=== PATIENT | female | born 1995 | race Two or more races ===

== ENCOUNTER 2022-03-07 05:11 | Inpatient (IN) ==
[2022-03-07] MEDS ORDERED: LIDOCAINE 1% LOCAL 20 ML VIAL INFIL PRN (08:11)
[2022-03-07] MEDS ORDERED: OXYTOCIN 30 UNITS/500 ML BAG IV PRN ×3 (08:11→15:33)
--- NOTE | 2022-03-07 08:22 | History & Physical Report ---
Date of Service March 07, 2022 Assessment & Plan (1) Active labor at term: Plan: 26 yo at 40.3 wks presenting in active labor with cervical change, VSS Afebrile GBS neg No medical problems FHR categ I Plan to admit, monitor, labs, AROM and augment with Oxytocin if needed All questions were answered. (2) Normal in multigravida in third trimester: History of Present Illness Primary Care Provider: NO PCP Patient is a 26 yo at 40.3 wks who has been feeling ctxs since yesterday morning, got closer and more painful since 05:30 am No LOF/VB +FM's Her was uncomplicated, she has been seeing Dr Weldon who is on vacation. GBS neg Allergies Allergy/AdvReac Type Severity Reaction Status Date / Time Penicillins Allergy Difficulty Verified 03/05/22 20:42 Breathing Home Medications Medication Instructions Recorded Confirmed Type ibuprofen 800 mg tablet 800 mg PO Q8H PRN pain #30 tabs 06/11/18 Rx acetaminophen 325 mg tablet 650 mg PO QID PRN Pain 03/22/21 03/22/21 History (Tylenol) [id number] 1 mg tab PO 03/05/22 History tablet Patient History Medical History (Updated 03/07/22 @ 08:20 by Jacqueline Martines MD) Dysfunctional uterine bleeding No significant past medical history Social History Smoking Status: Never smoker Second Hand Exposure: No; Hx Alcohol Use: No Hx Substance Use: No Preferred Language: Macedonian Communication Tools: IPad Data Modeling Specialist Required: Yes Beliefs That Will Affect Care: None marital status: Current Living Situation: Spouse and Family Current Living Situation Comment: and son 9 YO Feels Safe at Home: Yes Assistive Devices: None OB History FT , 9 year ago in [facility] Physical Exam Constitutional: WD/WN, vitals as above Gastrointestinal (Abdomen): normal bowel sounds, soft, nontender, no hepatosplenomegaly (gravid) Genitourinary: normal external appearance OB Exam Abdomen: + vertex Manual OB Exam: + cervical dilation 4 cm, + cervical effacement 80% and + station -1 (large, tight bulging bag) OB Exam Monitor Tracing: + external uterine monitor used and + category I Results & Data ([facility]) Vital Signs (Past 12 Hours) Vital Signs Temp Pulse Resp BP 03/07/22 05:31 20 03/07/22 07:03 36.7 C 85 20 137/80 03/07/22 06:00 20 03/07/22 06:00 36.8 C 20 03/07/22 05:37 92 H 129/85
[2022-03-07] MEDS ORDERED: Flu Vaccine (Fluarix) 0.5mL SYR (Standard Dose) IM ONE (08:30)
[2022-03-07] MEDS: LACTATED RINGER'S 1,000 ML IV PRN ×2 (08:30→12:18)
[2022-03-07 08:52] LABS: Hematocrit (blood only) 36.5 % (34.1-44.9); Hemoglobin 12.8 g/dl (12.0-16.0); Mean Corpuscular Hemoglobin 33.3 pg (25.0-34.0); Mean Corpuscular Hgb Conc 35.1 g/dL (32.0-36.0); Mean Corpuscular Volume 95.1 fL (80.0-100.0); Mean Platelet Volume 10.9 fL (9.4-12.3); Platelet Count 132 K/uL (130-400); Platelet Estimate Decreased (Normal); RDW Coefficient of Variation 13.5 % (11.5-14.5); RDW Standard Deviation 46.6 fL (36.4-46.3); Red Blood Count 3.84 M/uL (3.93-5.22); White Blood Count 7.36 K/ul (4.8-10.8)
[2022-03-07 08:57] LABS: Albumin Globulin Ratio 1.2 (0.9-2); Albumin Level 3.6 gm/dl (3.4-5.0); Bilirubin,Total 0.4 mg/dl (0.2-1.0); Calcium 8.9 mg/dl (8.5-10.1); Creatinine Clr Calc Pharmacy 135.3 ml/min; Est GFR (African American) 147.2 ml/min; Potassium 3.5 mmol/L (3.5-5.1); Total Protein 6.6 gm/dl (6.0-8.3)
[2022-03-07] MEDS ORDERED: BUPIVACAINE 0.25% 30 ML VIAL ONE (09:07)
[2022-03-07] MEDS ORDERED: LIDOCAINE 2%/EPINEPHRINE 1:200,000 20 ML SDV ONE (09:07)
[2022-03-07] MEDS ORDERED: ePHEDrine sulfate 50 MG/ML AMP ONE (09:07)
[2022-03-07] MEDS ORDERED: SODIUM CHLORIDE 0.9% INJ 10 ML VIAL ONE (09:07)
[2022-03-07] MEDS ORDERED: fentaNYL citrate 100 MCG/2 ML VIAL ONE (09:07)
[2022-03-07] MEDS ORDERED: fentaNYL 2MCG/ML ROPIVACAINE 1.25MG/ML 100 ML BAG EPI ONE (09:08)
--- NOTE | 2022-03-07 09:20 | Anesthesiology Consultation ---
Date of Service March 07, 2022 Assessment & Plan Chart Review Chart Review: Acceptable Risk for Labor Epidural Consults Requested none ASA ASA2 Proposed Anesthesia Anesthesia Type: Labor Epidural Risk / Benefits Reviewed With: PT / POA / Parent / Guardian, Accepts Plan and Informed Consent Obtained History Height/Weight Height: 5 ft 2 in Weight: 69.4 kg Allergies Allergy/AdvReac Type Severity Reaction Status Date / Time Penicillins Allergy Difficulty Verified 03/05/22 20:42 Breathing Medications Home Medications Medication Instructions Recorded Confirmed Last Taken prenat.vits,keith,srx-jbhj-chjos 1 tab PO DAILY 03/07/22 03/07/22 Unknown Active Medications Generic Name Dose Route Start Last Admin Trade Name Freq PRN Reason Stop Dose Admin Lactated Ringer's 1,000 mls @ 150 mls/hr 03/07/22 08:11 03/07/22 09:16 Lr IV 03/09/22 08:10 999 mls/hr .[id number] PRN Infusion L&D Protocol Protocol NPO Date Last Intake of Fluids: 03/07/22 Time Last Intake of Fluids: 00:00 Date Last Intake of Solids: 03/07/22 Time Last Intake of Solids: 00:00 Past Medical History Medical History Dysfunctional uterine bleeding No significant past medical history Exercise / Class Metabolic Activity II 4-5 Yardwork/Stairs/Walk up hill Past Anesthesia History No Hx of Anesthesia Complications and No Family Hx of Anesthesia Complications History of PONV No Hx of PONV and No Hx of Motion Sickness Social History Smoking Status: Never smoker Hx Alcohol Use: No Hx Substance Use: No Physical Exam Vital Signs Last Vital Signs Temp 36.7 C 03/07/22 07:03 Pulse 85 03/07/22 07:03 Resp 20 03/07/22 07:03 BP 137/80 03/07/22 07:03 ENMT Mouth: no TMJ abnormality Thyromental Distance: > or= 3.5 Finger Breadths Mallampati Class: II Neck normal visual inspection and trachea midline; neck extension not limited Respiratory normal respiratory effort Auscultation: lungs clear to auscultation bilaterally Cardiovascular Rate/Rhythm: regular rate and regular rhythm Heart Sounds: no murmur Musculoskeletal Spine: normal cervical ROM Extremities: full ROM of extremities Neurologic moves all extremities Psychiatric Orientation: alert and oriented x 3 Testing Laboratory Results 03/07/22 08:17 03/07/22 08:17
[2022-03-07] MEDS ORDERED: NALOXONE HCL 0.4 MG/1 ML VIAL/CARP IV PRN (09:39)
[2022-03-07] MEDS ORDERED: ONDANSETRON INJ 2 MG/ML 2 ML VIAL IV PRN (09:39)
[2022-03-07] MEDS ORDERED: PROMETHAZINE HCL 25 MG in SODIUM CHLORIDE 0.9% 50 ML IV PRN (09:39)
[2022-03-07] MEDS ORDERED: NALOXONE HCL 1 MG in SODIUM CHLORIDE 0.9% 1000ML 1,000 ML IV PRN (09:39)
[2022-03-07] MEDS ORDERED: NALBUPHINE HCL INJ 10 MG/ML AMP IV PRN (09:39)
[2022-03-07] MEDS ORDERED: ePHEDrine sulfate 50 MG/ML AMP IV PRN (09:39)
[2022-03-07] MEDS ORDERED: fentaNYL 2MCG/ML ROPIVACAINE 1.25MG/ML 100 ML BAG EPI PRN (09:39)
[2022-03-07] MEDS ORDERED: diphenhydrAMINE 50 MG/ML VIAL IV PRN (09:39)
[2022-03-07 09:45] LABS: Rubella IgG Ab Immune (Immune)
--- NOTE | 2022-03-07 11:53 | Obstetrical Progress Note ---
Date of Service March 07, 2022 Assessment & Plan Admission and Anticipated Discharge Date Admission Date: March 07, 2022 Subjective Patient is comfortable now VSS Afebrile FHR categ I VE; 5/ 80%/ -1, Large bg, AROM'ed light meconium Ctxs q2-4 min Continue to monitor Augment with Pitocin as needed Results & Data ([facility]) Vital Signs (Past 12 Hours) Vital Signs Temp Pulse Resp BP Pulse Ox 03/07/22 05:31 20 03/07/22 11:48 72 99 03/07/22 11:43 69 97 03/07/22 11:39 66 120/68 03/07/22 11:38 65 97 03/07/22 11:33 71 97 03/07/22 11:28 89 97 03/07/22 11:23 73 96 03/07/22 11:22 69 119/62 03/07/22 11:18 76 95 03/07/22 11:13 75 97 03/07/22 11:08 96 03/07/22 11:08 79 03/07/22 11:08 79 119/70 03/07/22 11:03 78 97 03/07/22 10:58 73 96 03/07/22 10:53 69 95 03/07/22 10:54 68 18 119/67 94 03/07/22 10:48 80 96 03/07/22 10:43 82 96 03/07/22 10:39 71 119/69 03/07/22 10:38 80 95 03/07/22 10:33 83 96 03/07/22 10:28 75 96 03/07/22 10:23 74 95 03/07/22 10:21 73 123/68 03/07/22 10:18 73 96 03/07/22 10:15 63 122/67 03/07/22 10:13 77 95 03/07/22 10:10 70 122/62 03/07/22 10:08 74 97 03/07/22 10:05 75 118/69 03/07/22 10:03 72 97 03/07/22 10:02 66 120/74 03/07/22 09:58 73 97 03/07/22 09:57 75 18 114/69 03/07/22 09:53 80 98 03/07/22 09:50 69 118/67 03/07/22 09:48 74 97 03/07/22 09:45 76 129/67 03/07/22 09:43 78 98 03/07/22 09:40 76 118/63 03/07/22 09:38 98 03/07/22 09:38 80 03/07/22 09:38 85 116/63 03/07/22 09:36 83 118/63 03/07/22 09:33 82 99 03/07/22 09:34 80 125/70 03/07/22 07:03 36.7 C 85 20 137/80 03/07/22 06:00 20 03/07/22 06:00 36.8 C 20 03/07/22 05:37 92 H 129/85
[2022-03-07] MEDS ORDERED: BENZOCAINE 20% AER SPR 82.5 GM CAN EXT PRN (15:33)
[2022-03-07] MEDS ORDERED: bisacodyL 10 MG SUPP PR PRN (15:33)
[2022-03-07] MEDS ORDERED: DIPHTHERIA/TETANUS/PERTUSSIS 0.5 ML SYR/VIAL IM ONE (15:33)
[2022-03-07] MEDS ORDERED: HYDROCORTISONE ACETATE 25 MG SUPP PR PRN (15:33)
[2022-03-07] MEDS ORDERED: ACETAMINOPHEN 325 MG TAB PO PRN (15:33)
[2022-03-07] MEDS ORDERED: IBUPROFEN 600 MG TAB PO PRN (15:33)
[2022-03-07] MEDS ORDERED: METHYLERGONOVINE MALEATE 0.2 MG/ML AMP IM ONE (15:33)
[2022-03-07] MEDS ORDERED: MEASLES, MUMPS & RUBELLA VIRUS VIAL SQ ONE (15:33)
--- NOTE | 2022-03-07 15:39 | Delivery Summary ---
Vaginal Delivery Summary Date of Service March 07, 2022 Vaginal Delivery Summary Patient was found to be fluid dilated and desire to push. She pushed through 2 contractions and delivered the head without difficulty. There was a nuchal cord around the neck x1 which was reduced. The shoulders were delivered with minimal traction and the baby was handed to the mother by mouth and nose were suctioned, the cord was clamped times and cut at 1 minute delay. The baby was moving and crying at that point. The vagina and perineum were checked for lacerations. There was a small first- degree laceration at the right labia minora and on the hymenal ring at 4 o'clock position. Those were repaired with 3-0 Vicryl on SH needle. Excellent hemostasis achieved. The rest of the vagina and perineum were intact. Then the placenta was found to be in the vagina, delivered spontaneously as in tact and complete. Uterus was explored and found to be empty, the lower segment was cleared of all clots and debris's, fundus was firm and EBL was 300 mL. Mom and baby tolerated procedure well, there was a viable female , Apgars were 8/9 and weight is pending. No complications happened and I was present during whole procedure. At the end of the procedure the sponge needle instrument count was correct x2.
--- NOTE | 2022-03-07 16:03 | Anesthesia Procedure Note ---
Date of Service March 07, 2022 Anesthesia Post Epidural Note Vital Signs Vital Signs: Temp Pulse Resp BP Pulse Ox 36.8 C 72 20 133/65 100 03/07/22 13:56 03/07/22 15:53 03/07/22 14:53 03/07/22 15:53 03/07/22 15:18 Notes Mental Status: alert / awake / arousable and participated in evaluation Nausea / Vomiting: adequately controlled Pain: adequately controlled Airway Patency, RR, SpO2: stable & adequate BP & HR: stable & adequate Hydration State: stable & adequate Neuraxial Anesthesia: was administered and sensory block resolved Anesthetic Complications: no major complications apparent and Pt Satisfied with anesthetic care Epidural: Removed without complications and With tip intact
[2022-03-07] MEDS: DOCUSATE SODIUM 100 MG CAP PO SCH (20:09)
[2022-03-08 07:50] LABS: Hematocrit (blood only) 36.2 % (34.1-44.9); Hemoglobin 12.8 g/dl (12.0-16.0); Mean Corpuscular Hemoglobin 33.1 pg (25.0-34.0); Mean Corpuscular Hgb Conc 35.4 g/dL (32.0-36.0); Mean Corpuscular Volume 93.5 fL (80.0-100.0); Platelet Count 133 K/uL (130-400); RDW Coefficient of Variation 13.5 % (11.5-14.5); RDW Standard Deviation 46.2 fL (36.4-46.3); Red Blood Count 3.87 M/uL (3.93-5.22)
[2022-03-08] MEDS ORDERED: PRENATAL VITAMIN 1 TAB PO SCH (08:00)
[2022-03-08] MEDS ORDERED: FERROUS SULFATE 325 MG TAB PO SCH (08:00)
[2022-03-08] MEDS: DOCUSATE SODIUM 100 MG CAP PO SCH (08:03)
[2022-03-08] MEDS ORDERED: bisacodyL 5 MG TABEC PO SCH (20:00)
[2022-03-09 11:42] LABS: HBSAG NON-REACTIVE (NON-REACTIVE)
== END 2022-03-08 17:45 | disposition home or self-care (01) | DRG 807 ==
LOC: OPB 05:11 → 4S1 05:14 → 4E2 17:59